=== PATIENT | male | born 2000 | race Caucasian/White ===

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

== ENCOUNTER 2024-04-14 11:51 | Outpatient (CLI) | payer OTHER, SELFPAY ==
[2024-04-14 12:49] LABS: Viscosity Semen High Viscosity
[2024-04-14 12:50] LABS: Epithelial Count Semen Rare /hpf; Pathology Referral Yes; Sperm Immotility 80 % (50-60); Sperm Non-Progressive Motility 10 % (5-10); Sperm Progressive Motility 10 % (31-34); White Blood Count Semen 0-4 /hpf
[2024-04-14 13:00] LABS: Sperm Vitality-% Live Sperm 52 %
== END 2024-04-14 11:52 | disposition home or self-care (01) ==
LOC: LAB 11:52
PROVIDERS: Visit Provider Nurse Practitioner Women's Health
DX: Z31.69 Encounter for other general counseling and advice on procreation (principal)
CPT/HCPCS: 80503; 89320

== ENCOUNTER 2024-05-25 15:01 | Emergency (ER) | payer OTHER, SELFPAY ==
[2024-05-25] VITALS (9 sets, daily range): BP systolic 103–168; BP diastolic 77–97; PULSE 83–130; RESP 16–18; TEMP 36.4; O2SAT 93–100; BMI 25.0
--- NOTE | 2024-05-25 15:26 | XRR_ITS ---
PROCEDURE INFORMATION: Exam: XR Chest Exam date and time: 05/25/2024 3:31 PM Age: 23 years old Clinical indication: Shortness of breath; Patient HX: Pain with inspiration TECHNIQUE: Imaging protocol: Radiologic exam of the chest. Views: 1 view. COMPARISON: No relevant prior studies available. FINDINGS: Lungs: Unremarkable. No consolidation. Pleural spaces: Unremarkable. No pleural effusion. No pneumothorax. Heart/Mediastinum: Unremarkable. No cardiomegaly. Bones/joints: Unremarkable. XR/XR chest 1V portable [id number] IMPRESSION: No acute cardiopulmonary disease.
--- NOTE | 2024-05-25 15:42 | ED_ITS ---
Documented by User: RICARDA Atkinson 05/25/24 20:47 HPI - SOB/Dyspnea 2 General: Chief Complaint: Shortness of Breath/Dyspnea Stated Complaint: tightness n pain in chest and back, SOB Time Seen by Provider: 05/25/24 15:15 Source: patient Mode of arrival: ambulatory Limitations: no limitations History of Present Illness: HPI Narrative: Patient is a 23-year-old male who presents to the emergency department complaining of shortness of breath for the past 4 days. States this is intermittent and worse with exercise, he has noticed this while playing basketball. He also states that today he has had onset of left-sided chest pain that radiates to his back and up to his left jaw. He has a history of hypothyroid and takes levothyroxine, otherwise no pertinent past medical history to report including no cardiac history. He is also reporting lightheadedness and visual changes. He states he has been taking his blood pressure at home over the past 4 days, has recorded it as high as 201 systolic and a diastolic reading of 130s. Denies feeling anxious or any new stress in his life. He is tachycardic at time of examination in the 140s, appearing uncomfortable. He is stating that the pain feels like a stabbing sensation, specifically worsened with exercise. He is feeling short of breath and having chest pain at this time. No history of asthma. MD elicited complaint: shortness of breath Onset (ago): day(s) Timing: intermittent Severity: moderate Exacerbating factors: exertion Relieving factors: nothing Associated symptoms: Reports chest pain and lightheadedness; Deny abdominal pain, fever(s), nausea, palpitations or vomiting Treatment prior to arrival: none Related Data Home Medications Medication Instructions Recorded Confirmed levothyroxine 100 mcg tablet 100 mcg PO DAILY 10/22/20 05/25/24 lisdexamfetamine 40 mg capsule 40 mg PO QAM 05/25/24 05/25/24 multivitamin with minerals-folic 2 tab PO DAILY 05/25/24 05/25/24 acid 200 mcg chewable tablet (Men's Daily Gummies) Allergies Allergy/AdvReac Type Severity Reaction Status Date / Time No Known Allergies Allergy Unverified 07/04/19 18:01 Review of Systems 2 General: Reports: 10 or more systems reviewed and unremarkable except in HPI and below Const: Denies: fever(s), chills or fatigue Eyes: Reports: change in vision ENMT: Denies: throat pain, ear or mastoid pain or nasal discharge Card: Reports: chest pain and lightheadedness; Denies: palpitations or swelling of feet/ankles Resp: Reports: dyspnea; Denies: productive cough or wheezing GI: Denies: abdominal pain, nausea, vomiting, diarrhea or constipation : Denies: flank pain, difficulty urinating, dysuria or urinary frequency Musc: Reports: neck pain and back pain; Denies: joint pain Skin/Breast: Denies: rash Neuro: Denies: headache(s), numbness in extremities or weakness in extremities PFSH ED 2 PFSH: Medical History (Updated 05/25/24 @ 20:41 by RICARDA Atkinson) Seizures Social History Smoking and tobacco/nicotine status: never used tobacco/nicotine Physical Exam 2 Const: COMMON NORMALS: patient oriented x3 and no limitations GENERAL APPEARANCE: cooperative, well developed and anxious O RIENTATION/CONSCIOUSNESS: Yes awake, Yes oriented to person, Yes oriented to place and Yes oriented to time HENMT: COMMON NORMALS: normocephalic, atraumatic, hearing grossly normal bilaterally and moist oral mucous membranes HEAD & SCALP: normocephalic and atraumatic Eye: COMMON NORMALS: Equal, round and reactive pupils present, EOMs intact bilaterally and conjunctivae normal CONJUNCTIVA: Yes conjunctivae normal P UPIL: Yes Equal, round and reactive pupils present Neck/C-Spine: COMMON NORMALS: full ROM, supple and no JVD Chest: COMMONS NORMALS: normal inspection of the chest and normal palpation of entire chest wall Resp: COMMON NORMALS: normal respiratory effort, No retractions, No use of accessory muscles and clear to auscultation bilaterally AUSCULTATION: clear to auscultation bilaterally Cardio: COMMON NORMALS: no JVD, regular rhythm, No clicks present (Cardio), No murmurs present (Cardio) and No rub (Cardio) RATE: tachycardic RHYTHM: r egular rhythm GI: COMMON NORMALS: Normal to inspection, nondistended, normoactive bowel sounds present, Soft to palpation and non-tender AUSCULTATION: Yes normoactive bowel sounds PALPATION: Yes Soft to palpation RECTAL EXAM: Yes deferred Back/Pelvis: COMMON NORMALS: thoracic and lumbar spine normal to inspection, no thoracic nor lumbar tenderness and thoraco-lumbar ROM normal Extremity: COMMON NORMALS: normal to inspection, full ROM and capillary refill normal Neuro: COMMON NORMALS: patient oriented x3, moves all extremities, no focal motor deficits and no sensory deficits noted SENSORIUM/ORIENTATION: Yes oriented to person, Yes oriented to place and Yes oriented to time Psych: COMMON NORMALS: mental status grossly normal and Normal thought process present THOUGHT PROCESS: Normal thought process present Skin: COMMON NORMALS: no rashes or lesions noted GENERAL SKIN EXAM: no rashes or lesions noted Course 2 Vital Signs: Vital signs: Vital Signs Temperature 97.5 F L 05/25/24 15:08 Pulse Rate 86 05/25/24 21:01 Respiratory Rate 16 05/25/24 21:01 Blood Pressure 125/77 05/25/24 21:01 Pulse Oximetry 97 05/25/24 21:01 Oxygen Delivery Me thod Room Air 05/25/24 20:38 MDM - SOB/Dyspnea Medical Decision Making This patient presented with 4 days of shortness of breath, acute onset of chest pain today. Was tachycardic in the 130/140 at time of exam, however blood pressure was unremarkable and rest of vitals normal. Had reported home blood pressures as high as 200 systolic. No pertinent past medical history other than hypothyroid controlled with levothyroxine. EKG showing sinus tachycardia with no STEMI or other arrhythmias. This was reviewed with physician. Chest x-ray was normal. His initial troponin was normal as well. CBC normal. CMP showing slight bump in creatinine and BUN compared to his prior. D-dimer negative, TSH within normal limits, and CPK normal. He was rechecked and his heart rate had been in the 80s, though upon informing him of plan for renal ultrasound, heart rate noted to jump again to 110/120s. Multiple times has been rechecked and appears comfortable, heart rate in the 70s and 80s. Told him we would try half dose of Xanax, and upon recheck stated that he had felt better. In addition his renal ultrasound did not show any adrenal abnormalities such as pheochromocytoma or stone/infection. However this did not get the adrenal glands and a CT abdomen pelvis was ordered, showing a pneumomediastinum in the anterior and posterior mediastinum. The rad had called and recommended a CT chest/esophagram, which we obtained with CT neck and chest without contrast and oral contrast given after a scalp film. This was obtained, V rad again had called commenting on an extensive pneumomediastinum tracking from lower neck deep soft tissues. However there was no evidence of esophageal origin such as a Boerhaave's, and there was no evidence of tension pneumo on x-ray or CT. I spoke with Dr. Agudelo, general surgeon here at [facility] who had recommended consultation with pulmonology/cardiothoracic surgery at a larger tertiary facility. I then spoke with cardiothoracic surgery at [facility], who had stated with ruling out esophageal rupture and pneumothorax that this likely was spontaneous pneumomediastinum and just would warrant follow-up with primary care to make sure that it is getting better and did not need transfer at this time. Patient's heart rate has improved throughout ED stay, and upon informing him of outpatient plan he agrees with this and has close follow-up with primary care as an option. With any worsening of his pain or breathing, he is informed to return to the nearest emergency department. Informed him of other conservative approach in regards to controlling his pain and avoiding any further complication, and all other questions and concerns were addressed. Multiple times throughout his ED course, case was discussed with both Dr. Carpio and Dr. Cruz, who agree with disposition of the patient. Lab Data 05/25/24 15:46 05/25/24 15:46 Labs/Radiology: Radiology Impressions Chest X-Ray 05/25/24 15:26 IMPRESSION: No acute cardiopulmonary disease. Renal Ultrasound 05/25/24 16:36 IMPRESSION: The kidneys are unremarkable bilaterally. No evidence of hydronephrosis or nephrolithiasis. Abdomen/Pelvis CT 05/25/24 18:10 IMPRESSION: 1. Pneumomediastinum in the anterior and posterior mediastinum without definitive evidence of pneumopericardium. Recommend further evaluation with fluoroscopic esophagram/CT chest esophagraphy for further evaluation to exclude underlying esophageal injury/perforation. 2. No evidence of acute appendicitis or acute diverticulitis. Moderate constipation. ADDENDUM: 05/25/24 1970 COMMENT: THIS REPORT CONTAINS FINDINGS THAT MAY BE CRITICAL TO PATIENT CARE. The exam findings were verbally communicated by me to QUYNH VAZQUEZ via telephone conference at 6:47 PM GLOBAL COMPENSATION DIRECTOR on 05/25/2024. The findings were acknowledged and understood. Chest CT 05/25/24 18:58 IMPRESSION: Extensive pneumomediastinum tracking into the lower neck deep soft tissues. Etiology remains unclear. No evidence for esophageal rupture. Consider Natali effect. COMMENTS: THIS REPORT CONTAINS FINDINGS THAT MAY BE CRITICAL TO PATIENT CARE. The findings were verbally communicated via telephone conference with QUYNH BAZAN at 7:51 PM GLOBAL COMPENSATION DIRECTOR on 05/25/2024. The findings were acknowledged and understood. Neck CT 05/25/24 19:20 IMPRESSION: 1. Known pneumomediastinum visualized at the base of the neck and extending into the neck soft tissues bilaterally. 2. Visualized upper esophagus is unremarkable. Laboratory Results WBC 9.29 10^3/uL (3.29-11.43) 05/25/24 15:46 RBC 5.20 10^6/uL (3.85-5.65) 05/25/24 15:46 Hgb 15.30 g/dL (11.27-16.99) 05/25/24 15:46 Hct 43.4 % (37-53) 05/25/24 15:46 MCV 83.5 fl (82-101) 05/25/24 15:46 MCH 29.4 pg (27-33) 05/25/24 15:46 MCHC 35.3 g/dL (30-55) 05/25/24 15:46 RDW 11.5 % (12.1-15.1) L 05/25/24 15:46 Plt Count 310 10^3/cmm (157-399) 05/25/24 15:46 MPV 9.9 fL (7.4-10.4) 05/25/24 15:46 Neut % (Auto) 68.1 % 05/25/24 15:46 Lymph % (Auto) 20.5 % 05/25/24 15:46 [place] % (Auto) 7.4 % 05/25/24 15:46 Eos % (Auto) 3.0 % 05/25/24 15:46 Baso % (Auto) 0.6 % 05/25/24 15:46 Neut # (Auto) 6.32 10^3/uL (1.8-7.7) 05/25/24 15:46 Lymph # (Auto) 1.9 10^3/uL (0.8-4.8) 05/25/24 15:46 [place] # (Auto) 0.7 10^3/uL (0.2-0.9) 05/25/24 15:46 Eos # (Auto) 0.3 10^3/uL (0.0-0.8) 05/25/24 15:46 Baso # (Auto) 0.1 10^3/uL (0.0-0.1) 05/25/24 15:46 Nucleated RBC % (auto) 0 % 05/25/24 15:46 Nucleated RBCs # 0.0 /100WBC 05/25/24 15:46 D-Dimer 0.36 ug/mLFEU (0-0.59) 05/25/24 15:46 Sodium 139 mmol/L (136-145) 05/25/24 15:46 Potassium 3.6 mmol/L (3.5-5.1) 05/25/24 15:46 Chloride 101 mmol/L (98-107) 05/25/24 15:46 Carbon Dioxide 23 mmol/L (22-29) 05/25/24 15:46 Anion Gap 18.6 (5-19) 05/25/24 15:46 BUN 21 mg/dL (6-20) H 05/25/24 15:46 Creatinine 1.3 mg/dL (0.7-1.2) H 05/25/24 15:46 GFR Calculation 69.7 mL/min (90-130) L 05/25/24 15:46 Glucose 122 mg/dL (65-115) H 05/25/24 15:46 Calculated Osmolality 292 mOsm/kg (285-295) 05/25/24 15:46 Calcium 10.0 mg/dL (8.5-10.5) 05/25/24 15:46 Magnesium 1.8 mg/dL (1.7-2.3) 05/25/24 15:46 Total Bilirubin 0.3 mg/dL (0.15-1.2) 05/25/24 15:46 AST 19 U/L (0-40) 05/25/24 15:46 ALT 19 U/L (0-41) 05/25/24 15:46 Alkaline Phosphatase 92 U/L (40-130) 05/25/24 15:46 Creatine Kinase 85 U/L (39-308) 05/25/24 15:46 Troponin T Baseline < 6 ng/L (0-15) 05/25/24 15:46 Total Protein 6.6 g/dL (6.6-8.7) 05/25/24 15:46 Albumin 4.7 g/dL (3.5-5.2) 05/25/24 15:46 Globulin 1.9 g/dL (1.3-4.6) 05/25/24 15:46 TSH 1.98 uIU/mL (0.27-4.20) 05/25/24 15:46 Urine Color Yellow (Yellow) 05/25/24 16:43 Urine Appearance Clear (CLEAR) 05/25/24 16:43 Urine pH >=9.0 (5-7) A 05/25/24 16:43 Ur Specific Sayner 1.028 (1.005-1.030) 05/25/24 16:43 Urine Protein 1+ (Negative) A 05/25/24 16:43 Urine Glucose (UA) Negative (Normal) 05/25/24 16:43 Urine Ketones Negative (Negative) 05/25/24 16:43 Urine Blood Negative (Negative) 05/25/24 16:43 Urine Nitrate Negative (Negative) 05/25/24 16:43 Urine Bilirubin Negative (Negative) 05/25/24 16:43 Urine Urobilinogen 1.0 mg/dL (Negative) 05/25/24 16:43 Ur Leukocyte Esterase Negative (Negative) 05/25/24 16:43 Urine RBC 0-2 /hpf (0-2) 05/25/24 16:43 Urine WBC 0-5 /hpf (0-5) 05/25/24 16:43 Ur Squamous Epith Cells 0-5 /hpf (0-5) 05/25/24 16:43 Amorphous Sediment Not Reportable 05/25/24 16:43 Urine Bacteria None seen /hpf (NONE) 05/25/24 16:43 Hyaline Casts 1.65 /lpf 05/25/24 16:43 All radiology interpretation(s) finalized by discharge Discharge Plan Discharge Patient Disposition: Home Clinical Impression: Pneumoperitoneum of unknown etiology Condition: Stable Prescriptions: No Action levothyroxine 100 mcg tablet 100 mcg PO DAILY lisdexamfetamine 40 mg capsule 40 mg PO QAM multivit with min-folic acid [Men's Daily Gummies] 200 mcg Tablet,Chewable 2 tab PO DAILY Discharge Orders: Discharge ED (Routine); Ordered 05/25/24 Ordered By: Quynh Bazan Patient Instructions: Chest Pain - Noncardiac Activity Restrictions/Additional Instructions: Please closely follow-up with your primary care for further evaluation and repeat x-ray later this week. Rest and recover, avoid vaping or any strenuous physical activity. Small meals. Please note that if your pain continues to worsen, if you continue to have shortness of breath, or have any other new concerning symptoms to return to the emergency department for further evaluation. Coding Level of Care Code ED Check Writer Salesperson for [employer] Documented by User: Dieudonne Carpio, 05/25/24 22:18 HPI - SOB/Dyspnea 2 General: Chief Complaint: Shortness of Breath/Dyspnea Stated Complaint: tightness n pain in chest and back, SOB Time Seen by Provider: 05/25/24 15:15 Related Data Home Medications Medication Instructions Recorded Confirmed levothyroxine 100 mcg tablet 100 mcg PO DAILY 10/22/20 05/25/24 lisdexamfetamine 40 mg capsule 40 mg PO QAM 05/25/24 05/25/24 multivitamin with minerals-folic 2 tab PO DAILY 05/25/24 05/25/24 acid 200 mcg chewable tablet (Men's Daily Gummies) Allergies Allergy/AdvReac Type Severity Reaction Status Date / Time No Known Allergies Allergy Unverified 07/04/19 18:01 [facility] ED 2 [facility]: Medical History (Updated 05/25/24 @ 20:41 by RICARDA Atkinson) Seizures Social History Smoking and tobacco/nicotine status: never used tobacco/nicotine Course 2 Vital Signs: Vital signs: Vital Signs Temperature 97.5 F L 05/25/24 15:08 Pulse Rate 86 05/25/24 21:01 Respiratory Rate 16 05/25/24 21:01 Blood Pressure 125/77 05/25/24 21:01 Pulse Oximetry 97 05/25/24 21:01 Oxygen Delivery Me thod Room Air 05/25/24 20:38 MDM - SOB/Dyspnea Medical Decision Making This patient presented with 4 days of shortness of breath, acute onset of chest pain today. Was tachycardic in the 130/140 at time of exam, however blood pressure was unremarkable and rest of vitals normal. Had reported home blood pressures as high as 200 systolic. No pertinent past medical history other than hypothyroid controlled with levothyroxine. EKG showing sinus tachycardia with no STEMI or other arrhythmias. This was reviewed with physician. Chest x-ray was normal. His initial troponin was normal as well. CBC normal. CMP showing slight bump in creatinine and BUN compared to his prior. D-dimer negative, TSH within normal limits, and CPK normal. He was rechecked and his heart rate had been in the 80s, though upon informing him of plan for renal ultrasound, heart rate noted to jump again to 110/120s. Multiple times has been rechecked and appears comfortable, heart rate in the 70s and 80s. Told him we would try half dose of Xanax, and upon recheck stated that he had felt better. In addition his renal ultrasound did not show any adrenal abnormalities such as pheochromocytoma or stone/infection. However this did not get the adrenal glands and a CT abdomen pelvis was ordered, showing a pneumomediastinum in the anterior and posterior mediastinum. The rad had called and recommended a CT chest/esophagram, which we obtained with CT neck and chest without contrast and oral contrast given after a scalp film. This was obtained, V rad again had called commenting on an extensive pneumomediastinum tracking from lower neck deep soft tissues. However there was no evidence of esophageal origin such as a Boerhaave's, and there was no evidence of tension pneumo on x-ray or CT. I spoke with Dr. Agudelo, general surgeon here at [facility] who had recommended consultation with pulmonology/cardiothoracic surgery at a larger tertiary facility. I then spoke with cardiothoracic surgery at [facility], who had stated with ruling out esophageal rupture and pneumothorax that this likely was spontaneous pneumomediastinum and just would warrant follow-up with primary care to make sure that it is getting better and did not need transfer at this time. Patient's heart rate has improved throughout ED stay, and upon informing him of outpatient plan he agrees with this and has close follow-up with primary care as an option. With any worsening of his pain or breathing, he is informed to return to the nearest emergency department. Informed him of other conservative approach in regards to controlling his pain and avoiding any further complication, and all other questions and concerns were addressed. Multiple times throughout his ED course, case was discussed with both Dr. Carpio and Dr. Cruz, who agree with disposition of the patient. This patient was originally seen by Mr. Radha PA-C.? I agree with his history, evaluation, and treatment. Lab Data 05/25/24 15:46 05/25/24 15:46 Labs/Radiology: Radiology Impressions Chest X-Ray 05/25/24 15:26 IMPRESSION: No acute cardiopulmonary disease. Renal Ultrasound 05/25/24 16:36 IMPRESSION: The kidneys are unremarkable bilaterally. No evidence of hydronephrosis or nephrolithiasis. Abdomen/Pelvis CT 05/25/24 18:10 IMPRESSION: 1. Pneumomediastinum in the anterior and posterior mediastinum without definitive evidence of pneumopericardium. Recommend further evaluation with fluoroscopic esophagram/CT chest esophagraphy for further evaluation to exclude underlying esophageal injury/perforation. 2. No evidence of acute appendicitis or acute diverticulitis. Moderate constipation. ADDENDUM: 05/25/24 1824 COMMENT: THIS REPORT CONTAINS FINDINGS THAT MAY BE CRITICAL TO PATIENT CARE. The exam findings were verbally communicated by me to QUYNH VAZQUEZ via telephone conference at 6:47 PM GLOBAL COMPENSATION DIRECTOR on 05/25/2024. The findings were acknowledged and understood. Chest CT 05/25/24 18:58 IMPRESSION: Extensive pneumomediastinum tracking into the lower neck deep soft tissues. Etiology remains unclear. No evidence for esophageal rupture. Consider Natali effect. COMMENTS: THIS REPORT CONTAINS FINDINGS THAT MAY BE CRITICAL TO PATIENT CARE. The findings were verbally communicated via telephone conference with QUYNH BAZAN at 7:51 PM GLOBAL COMPENSATION DIRECTOR on 05/25/2024. The findings were acknowledged and understood. Neck CT 05/25/24 19:20 IMPRESSION: 1. Known pneumomediastinum visualized at the base of the neck and extending into the neck soft tissues bilaterally. 2. Visualized upper esophagus is unremarkable. Laboratory Results WBC 9.29 10^3/uL (3.29-11.43) 05/25/24 15:46 RBC 5.20 10^6/uL (3.85-5.65) 05/25/24 15:46 Hgb 15.30 g/dL (11.27-16.99) 05/25/24 15:46 Hct 43.4 % (37-53) 05/25/24 15:46 MCV 83.5 fl (82-101) 05/25/24 15:46 MCH 29.4 pg (27-33) 05/25/24 15:46 MCHC 35.3 g/dL (30-55) 05/25/24 15:46 RDW 11.5 % (12.1-15.1) L 05/25/24 15:46 Plt Count 310 10^3/cmm (157-399) 05/25/24 15:46 MPV 9.9 fL (7.4-10.4) 05/25/24 15:46 Neut % (Auto) 68.1 % 05/25/24 15:46 Lymph % (Auto) 20.5 % 05/25/24 15:46 [place] % (Auto) 7.4 % 05/25/24 15:46 Eos % (Auto) 3.0 % 05/25/24 15:46 Baso % (Auto) 0.6 % 05/25/24 15:46 Neut # (Auto) 6.32 10^3/uL (1.8-7.7) 05/25/24 15:46 Lymph # (Auto) 1.9 10^3/uL (0.8-4.8) 05/25/24 15:46 [place] # (Auto) 0.7 10^3/uL (0.2-0.9) 05/25/24 15:46 Eos # (Auto) 0.3 10^3/uL (0.0-0.8) 05/25/24 15:46 Baso # (Auto) 0.1 10^3/uL (0.0-0.1) 05/25/24 15:46 Nucleated RBC % (auto) 0 % 05/25/24 15:46 Nucleated RBCs # 0.0 /100WBC 05/25/24 15:46 D-Dimer 0.36 ug/mLFEU (0-0.59) 05/25/24 15:46 Sodium 139 mmol/L (136-145) 05/25/24 15:46 Potassium 3.6 mmol/L (3.5-5.1) 05/25/24 15:46 Chloride 101 mmol/L (98-107) 05/25/24 15:46 Carbon Dioxide 23 mmol/L (22-29) 05/25/24 15:46 Anion Gap 18.6 (5-19) 05/25/24 15:46 BUN 21 mg/dL (6-20) H 05/25/24 15:46 Creatinine 1.3 mg/dL (0.7-1.2) H 05/25/24 15:46 GFR Calculation 69.7 mL/min (90-130) L 05/25/24 15:46 Glucose 122 mg/dL (65-115) H 05/25/24 15:46 Calculated Osmolality 292 mOsm/kg (285-295) 05/25/24 15:46 Calcium 10.0 mg/dL (8.5-10.5) 05/25/24 15:46 Magnesium 1.8 mg/dL (1.7-2.3) 05/25/24 15:46 Total Bilirubin 0.3 mg/dL (0.15-1.2) 05/25/24 15:46 AST 19 U/L (0-40) 05/25/24 15:46 ALT 19 U/L (0-41) 05/25/24 15:46 Alkaline Phosphatase 92 U/L (40-130) 05/25/24 15:46 Creatine Kinase 85 U/L (39-308) 05/25/24 15:46 Troponin T Baseline < 6 ng/L (0-15) 05/25/24 15:46 Total Protein 6.6 g/dL (6.6-8.7) 05/25/24 15:46 Albumin 4.7 g/dL (3.5-5.2) 05/25/24 15:46 Globulin 1.9 g/dL (1.3-4.6) 05/25/24 15:46 TSH 1.98 uIU/mL (0.27-4.20) 05/25/24 15:46 Urine Color Yellow (Yellow) 05/25/24 16:43 Urine Appearance Clear (CLEAR) 05/25/24 16:43 Urine pH >=9.0 (5-7) A 05/25/24 16:43 Ur Specific [place] 1.028 (1.005-1.030) 05/25/24 16:43 Urine Protein 1+ (Negative) A 05/25/24 16:43 Urine Glucose (UA) Negative (Normal) 05/25/24 16:43 Urine Ketones Negative (Negative) 05/25/24 16:43 Urine Blood Negative (Negative) 05/25/24 16:43 Urine Nitrate Negative (Negative) 05/25/24 16:43 Urine Bilirubin Negative (Negative) 05/25/24 16:43 Urine Urobilinogen 1.0 mg/dL (Negative) 05/25/24 16:43 Ur Leukocyte Esterase Negative (Negative) 05/25/24 16:43 Urine RBC 0-2 /hpf (0-2) 05/25/24 16:43 Urine WBC 0-5 /hpf (0-5) 05/25/24 16:43 Ur Squamous Epith Cells 0-5 /hpf (0-5) 05/25/24 16:43 Amorphous Sediment Not Reportable 05/25/24 16:43 Urine Bacteria None seen /hpf (NONE) 05/25/24 16:43 Hyaline Casts 1.65 /lpf 05/25/24 16:43 Discharge Plan Discharge Patient Disposition: Home Clinical Impression: Pneumoperitoneum of unknown etiology Condition: Stable Prescriptions: No Action levothyroxine 100 mcg tablet 100 mcg PO DAILY lisdexamfetamine 40 mg capsule 40 mg PO QAM multivit with min-folic acid [Men's Daily Gummies] 200 mcg Tablet,Chewable 2 tab PO DAILY Discharge Orders: Discharge ED (Routine); Ordered 05/25/24 Ordered By: Quynh Bazan Patient Instructions: Chest Pain - Noncardiac Activity Restrictions/Additional Instructions: Please closely follow-up with your primary care for further evaluation and repeat x-ray later this week. Rest and recover, avoid vaping or any strenuous physical activity. Small meals. Please note that if your pain continues to worsen, if you continue to have shortness of breath, or have any other new concerning symptoms to return to the emergency department for further evaluation. Coding Level of Care Code ED Check Writer Salesperson for Rey Chacon
[2024-05-25 16:08] LABS: Basophils # 0.1 10^3/uL (0.0-0.1); Basophils % 0.6 %; Eosinophils # 0.3 10^3/uL (0.0-0.8); Hematocrit 43.4 % (37-53); Lymphocytes # 1.9 10^3/uL (0.8-4.8); Lymphocytes % 20.5 %; Mean Corpuscular HGB Conc 35.3 g/dL (30-55); Mean Corpuscular Hemoglobin 29.4 pg (27-33); Mean Corpuscular Volume 83.5 fl (82-101); Mean Platelet Volume 9.9 fL (7.4-10.4); Monocytes # 0.7 10^3/uL (0.2-0.9); Monocytes % 7.4 %; Neutrophils # 6.32 10^3/uL (1.8-7.7); Neutrophils % 68.1 %; Nucleated Red Blood Cells % 0 %; Platelet Count 310 10^3/cmm (157-399); Red Cell Distribution Width 11.5 % (12.1-15.1); White Blood Count 9.29 10^3/uL (3.29-11.43)
[2024-05-25 16:17] LABS: D Dimer 0.36 ug/mLFEU (0-0.59)
[2024-05-25 16:22] LABS: Troponin(5th) Baseline < 6 ng/L (0-15)
[2024-05-25 16:30] LABS: Alanine Aminotransferase 19 U/L (0-41); Albumin Level 4.7 g/dL (3.5-5.2); Alkaline Phosphatase 92 U/L (40-130); Anion Gap 18.6 (5-19); Aspartate Amino Transferase 19 U/L (0-40); Blood Urea Nitrogen 21 mg/dL (6-20); Carbon Dioxide 23 mmol/L (22-29); Chloride 101 mmol/L (98-107); Creatine Phosphokinase 85 U/L (39-308); Creatinine Clr Calc Pharmacy 90.2381; Globulin 1.9 g/dL (1.3-4.6); Glomerular Filtration Rate 69.7 mL/min (90-130); Glucose 122 mg/dL (65-115); Magnesium 1.8 mg/dL (1.7-2.3); Osmolality Calculated 292 mOsm/kg (285-295); Potassium 3.6 mmol/L (3.5-5.1); Sodium 139 mmol/L (136-145); Thyroid Stimulating Hormone 1.98 uIU/mL (0.27-4.20); Total Bilirubin 0.3 mg/dL (0.15-1.2); Total Protein 6.6 g/dL (6.6-8.7)
--- NOTE | 2024-05-25 16:36 | USR_ITS ---
PROCEDURE INFORMATION: Exam: US Retroperitoneal, Complete, Kidneys and Bladder Exam date and time: 05/25/2024 5:20 PM Age: 23 years old Clinical indication: Other: HTN, tachy, elevated CR TECHNIQUE: Imaging protocol: Real-time ultrasound of the retroperitoneum with image documentation. Complete exam focused on the bilateral kidneys and urinary bladder. COMPARISON: No relevant prior studies available. FINDINGS: Right kidney: Right kidney measures 10.4 cm. No evidence of right-sided hydronephrosis or nephrolithiasis. Normal echogenicity of the right kidney. Left kidney: Left kidney measures 10.3 cm. No evidence of left-sided hydronephrosis or nephrolithiasis. Normal echogenicity of the left kidney. Urinary bladder: Underdistended limiting evaluation. US/US renal BI* [id number] IMPRESSION: The kidneys are unremarkable bilaterally. No evidence of hydronephrosis or nephrolithiasis.
[2024-05-25 16:52] LABS: Bilirubin Urine Negative (Negative); Blood Urine Negative (Negative); Glucose Urine UA Negative (Normal); Ketones Urine Negative (Negative); Leukocyte Esterase Urine Negative (Negative); Nitrate Urine Negative (Negative); Protein Urine 1+ (Negative); Specific Gravity, Urine 1.028 (1.005-1.030); Urine Appearance Clear (CLEAR); Urine Color Yellow (Yellow); pH Urine >=9.0 (5-7)
[2024-05-25 16:57] LABS: Add Urine Microscopic? YES; Bacteria Urine None Seen /hpf; Hyaline Casts Urine 1.65 /lpf; RBC Urine 0-2 /hpf (0-2); Squamous Epithelial Cell Urine 0-5 /hpf (0-5); WBC Urine 0-5 /hpf (0-5)
[2024-05-25] MEDS: ALPRAZolam 0.5 mg Tablet PO (17:30)
--- NOTE | 2024-05-25 18:10 | CTR_ITS ---
PROCEDURE INFORMATION: Exam: CT Abdomen And Pelvis Without Contrast Exam date and time: 05/25/2024 6:25 PM Age: 23 years old Clinical indication: Pain and abnormal findings; Abnormal lab test; Abnormal kidney function lab tests; Abdominal pain; Other: Back pain/ rlq; Patient HX: C/O back/rlq pain with alex. ; Additional info: Eval adrenal glands, unexplained htn/tachy/anxiety TECHNIQUE: Imaging protocol: Computed tomography of the abdomen and pelvis without contrast. Radiation optimization: All CT scans at this facility use at least one of these dose optimization techniques: automated exposure control; mA and/or kV adjustment per patient size (includes targeted exams where dose is matched to clinical indication); or iterative reconstruction. COMPARISON: US renal BI* [id number] 05/25/2024 5:20 PM RADIATION DOSE METRICS: Total DLP (mGy-cm): 392.21 FINDINGS: Esophagus: Partially visualized moderate amount pneumomediastinum extending along the anterior cardiac surface and also surrounding the distal esophagus. Liver: Normal. No mass. Gallbladder and biliary ducts: Gallbladder underdistended limiting evaluation. Pancreas: Normal. No ductal dilation. Spleen: Normal. No splenomegaly. Adrenal glands: Normal. No mass. Kidneys and ureters: Kidneys are unremarkable bilaterally. Stomach and bowel: Mildly increased colonic stool burden suggesting constipation. Appendix: No evidence of acute appendicitis. Intraperitoneal space: No intraperitoneal free air or fluid. Vasculature: Unremarkable. No abdominal aortic aneurysm. Lymph nodes: Unremarkable. No enlarged lymph nodes. Urinary bladder: Unremarkable as visualized. Reproductive: Unremarkable as visualized. Bones/joints: Unremarkable. No acute fracture. Soft tissues: Unremarkable. CT/CT kidney stone [id number] IMPRESSION: 1. Pneumomediastinum in the anterior and posterior mediastinum without definitive evidence of pneumopericardium. Recommend further evaluation with fluoroscopic esophagram/CT chest esophagraphy for further evaluation to exclude underlying esophageal injury/perforation. 2. No evidence of acute appendicitis or acute diverticulitis. Moderate constipation.
--- NOTE | 2024-05-25 18:58 | CTR_ITS ---
PROCEDURE INFORMATION: Exam: CT Chest Without Contrast; Diagnostic Exam date and time: 05/25/2024 7:16 PM Age: 23 years old Clinical indication: Patient HX: Pneumomediastinum noted on renal CT. Concern for esophageal injury. ; Additional info: Pneumomediastinum; Neck/chest pressure; Esophogeal protocol TECHNIQUE: Imaging protocol: Diagnostic computed tomography of the chest without contrast. Radiation optimization: All CT scans at this facility use at least one of these dose optimization techniques: automated exposure control; mA and/or kV adjustment per patient size (includes targeted exams where dose is matched to clinical indication); or iterative reconstruction. Other contrast: Oral, OMNI 350, 30ML CONTRAST DILUTED IN 420ML WATER.; COMPARISON: CR (CHEST, ) 05/25/2024 3:31 PM RADIATION DOSE METRICS: Total DLP (mGy-cm): 316.34 FINDINGS: Lungs: Clear. Pleural spaces: Unremarkable. No pneumothorax. No pleural effusion. Heart: Normal in size and configuration. No pericardial effusion. Coronary arteries: There is no evidence of atherosclerotic coronary artery calcifications. Mediastinal space: Extensive pneumomediastinum tracking into the lower neck deep soft tissues. No contrast leakage into the mediastinum. Lymph nodes: No concerning mediastinal, hilar, or axillary adenopathy by CT size criteria. Vasculature: Unremarkable. No aortic aneurysm. Stomach: Oral contrast within the stomach. Bones/joints: No acute skeletal pathology. Soft tissues: No acute body wall soft tissue findings. CT/CT chest wo con [id number] IMPRESSION: Extensive pneumomediastinum tracking into the lower neck deep soft tissues. Etiology remains unclear. No evidence for esophageal rupture. Consider Natali effect. COMMENTS: THIS REPORT CONTAINS FINDINGS THAT MAY BE CRITICAL TO PATIENT CARE. The findings were verbally communicated via telephone conference with QUYNH BAZAN at 7:51 PM [employer] on 05/25/2024. The findings were acknowledged and understood.
--- NOTE | 2024-05-25 19:20 | CTR_ITS ---
PROCEDURE INFORMATION: Exam: CT Neck Without Contrast Exam date and time: 05/25/2024 7:22 PM Age: 23 years old Clinical indication: Patient HX: Pneumomediastinum noted on renal CT. Concern for esophageal injury. ; Additional info: Penumomediastinum; Neck/upper chest pressure TECHNIQUE: Imaging protocol: Computed tomography of the neck without contrast. Radiation optimization: All CT scans at this facility use at least one of these dose optimization techniques: automated exposure control; mA and/or kV adjustment per patient size (includes targeted exams where dose is matched to clinical indication); or iterative reconstruction. COMPARISON: CT chest wo con [id number] 05/25/2024 7:16 PM RADIATION DOSE METRICS: Total DLP (mGy-cm): 168.47 FINDINGS: Paranasal sinuses: Mild sinus mucosal disease. No air-fluid levels. Mastoid air cells: There is no mastoid effusion detected. Salivary glands: Normal. Glands are normal in size. Pharynx: Unremarkable. No significant tonsillar enlargement. Prevertebral and retropharyngeal spaces: Unremarkable. Larynx: Unremarkable. Epiglottis is normal. Thyroid: Normal. No enlarged or calcified nodules. Trachea: Visualized trachea is unremarkable. Lungs: Unremarkable as visualized. Mediastinal space: Known pneumomediastinum visualized at the base of the neck and extending into the neck soft tissues bilaterally. Esophagus: The visualized upper esophagus is unremarkable. Lymph nodes: Unremarkable. No lymphadenopathy. Bones/joints: Unremarkable. No acute fracture. Soft tissues: Unremarkable. No significant soft tissue swelling. CT/CT neck wo con [id number] IMPRESSION: 1. Known pneumomediastinum visualized at the base of the neck and extending into the neck soft tissues bilaterally. 2. Visualized upper esophagus is unremarkable.
[2024-05-25] MEDS: iohexol 350 mg/mL 500 mL Btl (per mL) PO (19:26)
== END 2024-05-25 21:01 | disposition home or self-care (01) ==
PROVIDERS: Emergency Provider Physician Assistant
DX: K66.8 Other specified disorders of peritoneum (principal)
CPT/HCPCS: 36415; 70490; 71045; 71250; 74176; 76770; 80053; 81001; 82384; 82550; 82570; 83735; 84443; 84484; 85025; 85378; 99285

== ENCOUNTER 2024-06-09 11:05 | Outpatient (CLI) | payer OTHER, SELFPAY ==
[2024-06-09 11:38] LABS: Sperm Non-Progressive Motility 10 % (5-10); Sperm Progressive Motility 10 % (31-34); Viscosity Semen Normal; Volume Semen 5.5 mL (2-5)
[2024-06-09 11:39] LABS: Red Blood Count Semen 0-4 /hpf; Sperm Immotility 80 % (50-60); White Blood Count Semen 0-4 /hpf
[2024-06-09 12:06] LABS: Side 1 60
[2024-06-09 12:07] LABS: Side 2 63
[2024-06-09 13:25] LABS: Pathology Referral Yes; Sperm Vitality-% Live Sperm 48 %
== END 2024-06-09 11:06 | disposition home or self-care (01) ==
PROVIDERS: Visit Provider Nurse Practitioner Women's Health
DX: N46.9 Male infertility, unspecified (principal)
CPT/HCPCS: 80503; 89320